=== PATIENT | male | born 1960 | race Caucasian/White ===

== ENCOUNTER 2025-03-31 06:58 | Outpatient (CLI) | payer MEDICARE, SELFPAY ==
--- NOTE | ~2025-03-31 | US_ITS ---
EXAMINATION: US aorta [facility] DATE: 03/31/2025 8:34 CDT INDICATION: Screening for aortic aneurysm. Hypertension. High cholesterol. Atrial fibrillation. TECHNIQUE: Grayscale, color Doppler, and pulsed Doppler images of the aorta and common iliac arteries were obtained. COMPARISON: No prior studies for comparison. FINDINGS: The proximal aorta measures 2.6 cm greatest sagittal dimension. The mid aorta measures 2.4 cm greates t sagittal dimension. The distal aorta measures 1.9 cm greatest sagittal dimension. The right common internal iliac artery measures 1.7 cm. The left common iliac artery measures 1.6 cm. IMPRESSION: 1. Normal caliber aorta without aneurysm. Reviewed, dictated and finalized at location A.
--- NOTE | ~2025-03-31 | US_ITS ---
EXAMINATION: US carotid duplex BI DATE: 03/31/2025 08:06 INDICATION: Carotid stenosis TECHNIQUE: Grayscale, color Doppler, and pulsed Doppler images of the cervical carotid arteries were obtained. The degree of vessel stenosis is placed in one of the following categories: normal, <50%, 5 0-69%, >=70% but less than near-occlusion, near-occlusion, or total occlusion. Note that percent sten osis relative to normal distal artery lumen diameter is indirectly measured from velocity measurement s as described by Paramjit, et al. Radiology 2003; 229:340-346. Notes: Normal: Peak systolic velocity <125 centimeters/sec and no plaque <50%. Peak systolic velocity <125 ( EDV <40; ICA/CCA PSV ratio <2.0; used these factors only a tandem lesions or low cardiac output or co ntralateral disease) 50-69 %: PSV 125-230 (EDV 40-100; ratio 2-4) >= 70% but less than near occlusion: PSV greater than 230 (EDV > 100; ratio> 4.0) Near Occlusion: PSV that is variable; markedly narrowed lumen Occlusion: Absent flow on color/spectral Doppler and no lumen on bliss scale. COMPARISON: None. FINDINGS: RIGHT: The right common carotid artery (CCA) peak systolic velocity (PSV) is 103 cm/s. The right internal ca rotid artery (ICA) PSV is 59 cm/s. The right ICA end-diastolic velocity (EDV) is 21 cm/s. The right I CA/CCA PSV ratio is 0.6. The external carotid artery (ECA) PSV is 81 cm/s. There is antegrade flow in the right vertebral artery. LEFT: The left CCA PSV is 70 cm/s. The left ICA PSV is 54 cm/s. The left ICA EDV is 26 cm/s. The left ICA/C CA PSV ratio is 0.8. The ECA PSV is 73 cm/s. There is antegrade flow in the left vertebral artery. IMPRESSION: 1. Less than 50% stenosis in the right internal carotid artery by sonographic criteria. 2. Less than 50% stenosis in the left internal carotid artery by sonographic criteria. Reviewed, dictated and finalized at location A. IMPRESSION: 1. Less than 50% stenosis in the right internal carotid artery by sonographic israel elliott. 2. Less than 50% stenosis in the left internal carotid artery by sonographic henrry romero.
--- OUTSIDE RECORDS SUMMARY | 2025-03-31 07:02 | XMS_ITS ---
Author Organization [facility] Address [facility] [address] [place], [place] [id number] Care Team Providers Care Box Shook Patcher Name Role Phone Carlo Owusu Primary Care Provider Unavailab Zafar Matthews Unavailable [phone] Migration, Provider Unavailable Unavailable REASON FOR VISIT Multum To Medispan Conversion Encounter Medications Medication SIG (Take, Route, Frequency, Duration) Notes Start Date End Date Status Lipitor 10 MG 1 tab(s) orally once a day Active Losartan Potassium 25 MG 1 tab(s) orally once a day Active Doxycycline Hyclate 100 MG 1 cap(s) oral ly 2 times a day for 10 days 10/01/2023 Active Prevacid 30 MG 1 cap(s) orally once a day Active amLODIPine Besylate 2.5 MG 1 tab(s) oral ly once a day Active Encounters Encounter Location Date Provider Diagnosis [facility] Plastic Surgery [address] [place], [place] [id number] 10/09/2024 Provider Migration Plan Of Treatment No Information Progress Notes * Live OWUSUDOB:1960 (65 yo M)Acc No.[id number]:10/09/2024 Patient: Live DILLARD Provider: Ignacia ward Migration :1960 A ge:64 Y S ex:Male Date:10/09/2024 [facility] [facility] [place] Pcp:Carlo Owusu Subjective: * Chief Complaints: * 1 . Multum To Medispan Conversion Encounter. * Medical History: * Medications: T aking Losartan Potassium 25 MG Tablet 1 tab(s) orally once a day , Taking Lipitor 10 MG Tablet 1 tab(s) orally once a day , Taking amLODIPine Besylate 2.5 MG Tablet 1 tab(s) orally once a day , Taking Prevacid 30 MG Capsule Delayed Release 1 cap(s) orally once a day , Taking Doxycycline Hyclate 100 MG Capsule 1 cap(s) orally 2 times a day Objective: * Vitals: * Physical Examination: Assessment: Plan: * Treatment: * * Electronic signature of Zamzam wolf Migration on 03/31/2025 at 07:02 AM CDT Sign off status: Pending * Provider: Ignacia ward Migration Date: 12/10/2023 Generated for Tristan aguilar/Cruz/Nicole on: 03/31/2025 07:02 AM CDT
--- OUTSIDE RECORDS SUMMARY | 2025-03-31 07:02 | XMS_ITS | Referral Summary ---
Author Organization [facility] Address [address] [place] [address] Care Team Providers Care Watch Mechanic Name Role Phone Carlo Owusu DO Primary Care Provider [phone] Allergies No known active allergies Medications lansoprazole (PREVACID) 30 mg capsule Take 1 capsule (30 mg total) by mouth daily Active atorvastatin (LIPITOR) 20 mg tablet Take 1 tablet (20 mg total) by mouth daily Active ascorbic acid (VITAMIN C) 100 mg tablet Take 1 tablet (100 mg total) by mouth daily Active cholecalciferol (VITAMIN D-3) 25 mcg (1,000 unit) tablet Take 1 tablet (1,000 Units total) by mouth daily Active losartan (COZAAR) 100 mg tablet Take 1 tablet (100 mg total) by mouth daily 01/26/2024 Active apixaban (ELIQUIS) 5 mg tablet Take 1 tablet (5 mg total) by mouth 2 (two) times a day 90 tablet 3 02/13/2024 Active dilTIAZem XR (Cartia XT) 180 mg 24 hr capsule Take 1 capsule (180 mg total) by mouth daily 90 capsule 3 02/13/2024 Active Active Problems Problem Noted Date Diagnosed Date Paroxysmal A-fib 10/03/2021 Anticoagulation management encounter 08/11/2021 Assessment & Plan (08/11/2021 2:11 PM CDT): The patient has a chads Vasc score of 0. At this level of risk, anticoagulation is not compulsory. He may continue on it at this is his preference. He understands that following ablation or if cardioversion is entertained, anticoagulation is necessary (at least transiently) regardless of risk score. I have not scheduled a specific follow up visit, but have asked the patient to contact me if new problems or questions arise. He will continue to follow closely with Dr. Vizcarra. Persistent atrial fibrillation 12/22/2017 Assessment & Plan (08/11/2021 2:09 PM CDT): Paroxysmal atrial fibrillation, symptomatic. Presently, the patient is maintaining sinus rhythm with dronedarone. However, he is experiencing mild side effects and is contemplating whether not he wants to continue on this medication in the long- term. We discussed catheter ablation as an option. We discussed the rationale for atrial fibrillation ablation, including the steps involved in ablation. I detailed the risks of the procedure, including vascular injury/hematoma, myocardial injury/perforation, stroke, myocardial infarction, pulmonary vein stenosis, thermal esophageal injury, phrenic nerve injury, and . I estimated a 70-80% chance of freedom from long-term atrial arrhythmia, and the patient understands that occasionally a second procedure is necessary. The patient will consider this option, and I asked him to contact me if he had additional questions. From: October, Anastacio LS, Shu JS, Albino H, Mayito WILFRID, Alicia JE, Barbara OCTAVIO, Rashmi PT, Reyes RAE, ME, Lalo KT, Ninfa RL, Pantera WG, Cam PJ, Courtney CM, Margarita CW. 2014 AHA/ACC/HRS guideline for the management of patients with atrial fibrillation: a report of the [place] [employer]/[place] [employer] Association Task Force on Practice Guidelines and the Heart Rhythm Society. J Am Rae Cardiol 2014. 6.3. AF Catheter Ablation to Maintain Sinus Rhythm: Recommendations Class I AF catheter ablation is useful for symptomatic paroxysmal AF ... intolerant to at least 1 class I or III antiarrhythmic medication when a rhythm control strategy is desired (356, [phone]). (Level of Evidence: A) Assessment & Plan (07/25/2021 10:53 AM CDT): We talked about again today the options for his atrial fibrillation. He does not want to take Multaq all of his life but he also does not want to consider ablation. He wants to try stopping the Multaq but I have told him he is very likely to have recurrent atrial fibrillation again. He also continues to drink intermittently. He is going to see Dr. Tony Kitchen from . I told him they could talk more about his options at that visit. I will plan on seeing him again in 3 months. Assessment & Plan (05/22/2021 11:02 AM CDT): The patient presented to the emergency room in [place] on May 17 with palpitations consistent with atrial fibrillation documented per EKG. He had conversion to sinus rhythm after receiving IV diltiazem followed by IV amiodarone and briefly amiodarone drip. At this time he will continue his p.o. diltiazem, amiodarone 200 mg daily, and remain on Eliquis for thromboembolic prophylaxis. I discussed with him the option of ongoing medical therapy versus evaluation by electrophysiology for possible ablation procedure. He would like to see the remodeler so I did provide names of the doctors at [facility] and he will set up an appointment. I encouraged him to follow through on getting his echocardiogram which he canceled yesterday. At this time I will not reorder the 30 day event monitor because we have documentation of his atrial fibrillation from his ER visit. He will follow up with Dr. Vizcarra after evaluation with electrophysiology. Assessment & Plan (05/02/2021 1:49 PM CDT): His chads Vasc is 2 for a both hypertension history of vascular disease. He has had previous atrial fibrillation and so I suspect this is also atrial fibrillation paroxysmal also. Given that, I went ahead and started him on Xarelto 20 mg daily. He continues on diltiazem. I will put an event monitor on him because I want to get a look at what his rhythm is doing. I think it is quite likely he needs another medication besides diltiazem. I asked him to get an echocardiogram again to look at his LV function and mitral insufficiency that was noted on his echo in 2010. I also asked him to get a TSH. After I get all of those things back I will see him back in the office in 6-8 weeks. Results of that testing will follow earlier as soon as I get them back. Assessment & Plan (12/22/2017 2:34 PM BLOOD BANK ORDER CONTROL CLERK): The patient has not had any recurrence of atrial fibrillation however he is still drinking alcohol. I told him he needs to control that alcohol intake because it would increase his risk of AFib recurrence. He states that he really has not had a recurrence since 2007. Non-rheumatic mitral regurgitation 12/22/2017 Assessment & Plan (07/25/2021 10:53 AM CDT): We will follow this by serial ECHO but he has had an echo recently. Assessment & Plan (05/02/2021 1:49 PM CDT): As noted above, I would like to repeat his echocardiogram also to look at his MR. Assessment & Plan (12/22/2017 2:36 PM BLOOD BANK ORDER CONTROL CLERK): The patient has not had a echo done about 7 years. He last had [id number] mitral regurgitation. We will probably repeat the echo with the next visit. Chest pain on breathing 12/22/2017 Assessment & Plan (12/22/2017 2:34 PM BLOOD BANK ORDER CONTROL CLERK): Patient is somewhat worried about his chest discomfort. He has some cardiac risk factors based on this we will get an exercise nuclear stress test on to allay some of his fears. PVD (peripheral vascular disease) 12/22/2017 Assessment & Plan (12/22/2017 2:37 PM BLOOD BANK ORDER CONTROL CLERK): The patient had a peripheral vascular ultrasound showing only atherosclerotic changes with no significant blockage. We discussed the need for him to change cardiac risk factors. We will increase his Lipitor to 20 mg and have a repeat cholesterol panel done to get his cholesterol lower. His LDL was 95 however we will try to get it lower. Pure hypercholesterolemia 12/22/2017 Assessment & Plan (07/25/2021 10:53 AM CDT): He also has had a recent lipid panel so I did not repeat that. Assessment & Plan (12/22/2017 2:38 PM BLOOD BANK ORDER CONTROL CLERK): Lipid abnormalities are improving with treatment. Pharmacotherapy as ordered. Lipids will be reassessed in 1 year. The patient is worried about his risk factors. Based on this we will increase Lipitor and see if we get his LDL down below 70. Social History Tobacco Use Types Packs/Day Years Used Date Smoking Tobacco: Never Smokeless Tobacco: Never Tobacco Cessation:Counseling Given: Not Answered Alcohol Use Standard Drinks/Week Comments Yes 0 (1 standard drink = 0.6 oz pur e alcohol) AUDIT-C Answer Date Recorded Q1: How often do you have a drink containing alc ohol? Monthly or less 10/03/2021 Q2: How many drinks containi ng alcohol do you have on a typical day when you are drinking? 1 or 2 10/03/2021 Q3: How often do you have si x or more drinks on one occasion? Never 10/03/2021 Sex and Gender Information Value Date Recorded Sex Assigned at Not on file Legal Sex Male 11:12 PM BLOOD BANK ORDER CONTROL CLERK Gender Identity Male 08/08/2021 4:56 PM CDT Sexual Orientation Not on file Last Filed Vital Signs Vital Sign Reading Time Taken Comments Blood Pressure 140/90 02/13/2024 10:38 AM CDT Pulse 71 02/13/2024 10:38 AM CDT Temperature 36.8 C (98.3 F) 10/04/2021 9:00 AM BLOOD BANK ORDER CONTROL CLERK Respiratory Rate 20 10/04/2021 9:00 AM BLOOD BANK ORDER CONTROL CLERK Oxygen Saturation 96% 02/13/2024 10:38 AM CDT Inhaled Oxygen Concentration - - Weight 123.6 kg (272 lb 8 oz) 02/13/2024 10:38 A M CDT Height 185.4 cm (6' 1) 02/13/2024 10:38 AM CDT Body Mass Index 35.95 02/13/2024 10:38 AM CDT Plan of Treatment Not on file Medical Devices Implanted Type Area National Sales Executive Device Identifier Shelf Expiration Date Model / Serial / Lot [employer] [id number] Vascade 6/7fr Bioabsorbable Vascular System Compression Collagen - [id number] - [id number] Implanted:Qty: 1 on 10/03/2021 by Eleuterio Kitchen MD at [facility] Collagen [employer] 06/07/2023 [id number] / [id number] / [id number] [employer] [id number] System 6-12fr Mvp Venous Closure Vascade - [id number] - [id number] Implanted:Qty: 1 on 10/03/2021 by Eleuterio Kitchen MD at [facility] Collagen [employer] 08/06/2023 [id number] [id number] / [id number] / [id number] [employer] [id number] System 6-12fr Mvp Venous Closure Vascade - [id number] - [id number] Implanted:Qty: 1 on 10/03/2021 by Eleuterio Kitchen MD at [facility] Collagen [employer] 08/06/2023 [id number]-[id number] 0U / [id number] / [id number] [employer] [id number] System 6-12fr Mvp Venous Closure Vascade - [id number] - [id number] Implanted:Qty: 1 on 10/03/2021 by Eleuterio Kitchen MD at [facility] Collagen [employer] 08/06/2023 800-612C-1 0U / [id number] / [id number] M[employer] Implanted:Qty: 1 on 12/29/2017 by Jatinder Carey DO at [facility] 09/25/2019 [id number] / / [id number] Insurance [facility] [employer] CHOICE MEDICARE PPO Advance Directives For more information, please contact: [phone] * Full Code (Latest Code Status on File) Date Activated Date Inactivated Comments 12/29/2017 9:19 AM 12/29/2017 3:51 PM Care Teams Watch Mechanic Relationship Specialty Start Date End Date Carlo Owusu DO [address] [place] [address] PCP - General 11/05/10
--- OUTSIDE RECORDS SUMMARY | 2025-03-31 07:02 | XMS_ITS | Clinical Summary ---
Author Organization [facility] Address [address] [place] [address] Phone Care Team Providers Care Intelligent Systems Engineer Name Role Phone Carlo Owusu DO Primary Care Provider Allergies No known active allergies Medications amiodarone (CORDARONE) 200 MG Tablet Take 1 Tablet by mouth daily. 30 Tablet 05/17/2021 Active Social History Tobacco Use Types Packs/Day Years Used Date Smoking Tobacco: Never Smokeless Tobacco: Never Alcohol Use Standard Drinks/Week Comments Yes 0 (1 standard drink = 0.6 oz pur e alcohol) Sex and Gender Information Value Date Recorded Sex Assigned at Not on file Legal Sex Male 5:08 AM CDT Gender Identity Not on file Sexual Orientation Not on file Last Filed Vital Signs Vital Sign Reading Time Taken Comments Blood Pressure 122/71 05/17/2021 9:45 AM CDT Pulse 80 05/17/2021 9:45 AM CDT Temperature 36.4 C (97.5 F) 05/17/2021 5:14 AM CDT Respiratory Rate 20 05/17/2021 9:30 AM CDT Oxygen Saturation 93% 05/17/2021 9:45 AM CDT Inhaled Oxygen Concentration - - Weight 131.5 kg (290 lb) 05/17/2021 5:14 AM CDT Height 188 cm (6' 2) 05/17/2021 5:14 AM CDT Body Mass Index 37.23 05/17/2021 5:14 AM CDT Plan of Treatment Health Maintenance Due Date Last Done Comments Hepatitis C Virus (HCV) Screening 1960 Colonoscopy 01/28/2005 Colorectal Cancer Screening 01/28/2005 Cologuard 01/28/2010 Immunochemical Fecal Occult Blood 01/28/2010 Pneumococcal Immunization (5 0+ years) (1 of 1 - PCV) 01/28/2010 SARS-COV-2 Immunization (2 - season) 2024 08/23/2021 Influenza Immunization (Seas on Ended) 2025 07/04/2020, 07/09/2017 Respiratory Syncytial Virus (RSV) Immunization (Adult) (1 - 1-dose 75+ series) 01/28/2035 DTaP/Tdap/Td Immunization Discontinued 02/01/2019 TdaP Immunization Completed 02/01/2019 Zoster Immunization Completed 02/26/2021, 09/24/2020 Hepatitis B Immunization Aged Out No longer eligible based on patient's age to complete this topic Human Papillomavirus (HPV) Immunization Aged Out No longer eligible based on patient's age to complete this topic Meningococcal Immunization (ACWY) Aged Out No longer eligible based on patient's age to complete this topic Rotavirus Immunization Aged Out No lo nger eligible based on patient's age to complete this topic Insurance Care Teams Intelligent Systems Engineer Relationship Specialty Start Date End Date Carlo Owusu DO [address] [place] [address] PCP - General Family Medicine 05/17/21
--- OUTSIDE RECORDS SUMMARY | 2025-03-31 07:02 | XMS_ITS ---
Author Organization [facility] Address [address] [id number] Care Team Providers Care Physical Damage Appraiser Name Role Phone Carlo Owusu Primary Care Provider Unavailab Zafar Matthews Unavailable [phone] REASON FOR VISIT right side tumor soft tissue neck //aw Encounters Encounter Location Date Provider Diagnosis [facility] [address] [address] 10/09/2023 Zafar Vera Epidermal cyst L72.0 Assessments Encounter Date Diagnosis (ICD Code) Assessment Notes Treatment Notes Treatment Clinical Notes Section Notes 10/09/2023 Epidermal cyst (ICD-10 - L72.0) Plan Of Treatment No Information Progress Notes * Live OWUSUDOB:1960 (65 yo M)Acc No.[id number]:10/09/2023 Progress Note Patient: Live DILLARD Provider: Nanda Vera DO :1960 A ge:63 Y S ex:Male Date:10/09/2023 Address:[address] [place] [place], [place] Pcp:Carlo Owusu Subjective: * Chief Complaints: * 1 . Right side tumor soft tissue neck //aw. * Medical History: Objective: * Vitals: * Physical Examination: Assessment: * Assessment: 1. E pidermal cyst - L72.0 (Primary) Plan: * Treatment: * Procedure Codes: 2 1552 EXC NECK LES 3cm & over * * Electronic signature of Juan Vera DO on 03/31/2025 at 07:02 AM CDT Sign off status: Pending * Provider: Nanda Vera DO Date: 1 12/10/2022 Generated for Tristan aguilar/Cruz/Nicole on: 03/31/2025 07:02 AM CDT
--- OUTSIDE RECORDS SUMMARY | 2025-03-31 07:02 | XMS_ITS | Clinical Summary ---
Author Organization [facility] Address [address] [place] [address] Care Team Providers Care Metabolic Specialist Name Role Phone Carlo Owusu DO Primary Care Provider [phone] Allergies No known active allergies Medications lansoprazole [...] with atrial fibrillation: a report of the [place] College of Cardiology/[place] Heart Association Task Force on Practice Guidelines [...] intermittently. He is going to see Dr. oTny Kitchen from . I told him they could talk more about his options at that visit. I will plan on seeing him again in 3 months. Assessment & Plan (05/22/2021 11:02 AM CDT): The patient presented to the emergency room in [place] on May 17 with palpitations consistent with [...] procedure. He would like to see the commodity industry analyst so I did provide names of the doctors at [facility] and he will set up an appointment. [...] back. Assessment & Plan (12/22/2017 2:34 PM DIGITAL MEDIA STRATEGIST): The patient has not had any recurrence [...] MR. Assessment & Plan (12/22/2017 2:36 PM DIGITAL MEDIA STRATEGIST): The patient has not had a echo done about 7 years. He last had sqzl-eo-zkhpebbx mitral regurgitation. We will probably repeat the echo with the next visit. Chest pain on breathing 12/22/2017 Assessment & Plan (12/22/2017 2:34 PM DIGITAL MEDIA STRATEGIST): Patient is somewhat worried about his chest discomfort. He has some cardiac risk factors based on this we will get an exercise nuclear stress test on to allay some of his fears. PVD (peripheral vascular disease) 12/22/2017 Assessment & Plan (12/22/2017 2:37 PM DIGITAL MEDIA STRATEGIST): The patient had a peripheral vascular ultrasound [...] that. Assessment & Plan (12/22/2017 2:38 PM DIGITAL MEDIA STRATEGIST): Lipid abnormalities are improving with treatment. Pharmacotherapy as ordered. Lipids will be reassessed in 1 year. The patient is worried about his risk factors. Based on this we will increase Lipitor and see if we get his LDL down below 70. Surgical History Surgery Date Site/Laterality Comments NO PAST SURGERIES Medical History Medical History Date Comments Sleep apnea sleep apnea Hyperlipidemia A-fib (HCC) Colitis, acute Family History Medical History Relation Name Comments Heart attack Maternal Grandfather Myocard ial Infarction; Cause of : Myocardial Infarction Arrhythmia Mother Arrhythmias; Heart attack Mother's Brother 2 Myocardia l Infarction; Cause of : Myocardial Infarction Relation Name Status Comments Maternal Grandfather Mother Alive Mother's Brother 1 Mother's Brother 2 Social History Tobacco Use Types Packs/Day Years [...] on file Legal Sex Male 11:12 PM DIGITAL MEDIA STRATEGIST Gender Identity Male 08/08/2021 4:56 PM CDT Sexual Orientation Not on file Obstetrics History Last Filed Vital Signs Vital Sign Reading Time Taken Comments Blood Pressure 140/90 02/13/2024 10:38 AM CDT Pulse 71 02/13/2024 10:38 AM CDT Temperature 36.8 C (98.3 F) 10/04/2021 9:00 AM DIGITAL MEDIA STRATEGIST Respiratory Rate 20 10/04/2021 9:00 AM DIGITAL MEDIA STRATEGIST Oxygen Saturation 96% 02/13/2024 10:38 AM CDT Inhaled Oxygen Concentration - - Weight 123.6 kg (272 lb 8 oz) 02/13/2024 10:38 A M CDT Height 185.4 cm (6' 1) 02/13/2024 10:38 AM CDT Body Mass Index 35.95 02/13/2024 10:38 AM CDT Plan of Treatment Health Maintenance Due Date Last Done Comments Colon Cancer Screening-Colonoscopy 1960 Depression Screening 1960 Hepatitis C Screening 1960 Prostate Cancer Screening-PSA 1960 Hepatitis B Screening 01/28/1978 Pneumococcal vaccine 65+ (1 of 1 - PCV) 01/28/2010 Fall Risk Assessment 10/04/2022 10/04/2021 Abdominal Aortic Aneurysm (A AA) Screen 01/28/2025 Well Visit 65+ 01/28/2025 Influenza Vaccine (Season Ended) 2025 07/04/2020, 08/02/2019, 07/09/2017, Additional history exists DTaP/Tdap/Td Vaccine (2 - Td or Tdap) 02/01/2029 02/01/2019 Zoster Vaccine Completed 02/26/2021, 09/24/2020 Medical Devices Implanted Type Area Veterinary Practice Manager Device Identifier Shelf Expiration Date Model / Serial / Lot [employer] [id number] Vascade 6/7fr Bioabsorbable Vascular System Compression Collagen - [id number] - [id number] Implanted:Qty: 1 on 10/03/2021 by Eleuterio Kitchen MD at [facility] Collagen [employer] 06/07/2023 [id number] / [id number] / [id number] [employer] [id number] System 6-12fr Mvp Venous Closure Vascade - [id number] - [id number] Implanted:Qty: 1 on 10/03/2021 by Eleuterio Kitchen MD at [facility] Collagen [employer] 08/06/2023 800-612C-1 0U / [id number] / [id number] [employer] [id number] System 6-12fr Mvp Venous Closure Vascade - [id number] - [id number] Implanted:Qty: 1 on 10/03/2021 by Eleuterio Kitchen MD at [facility] Collagen [employer] 08/06/2023 800-612C-1 0U / [id number] / [id number] [employer] [id number] System 6-12fr Mvp Venous Closure Vascade - [id number] - [id number] Implanted:Qty: 1 on 10/03/2021 by Eleuterio Kitchen MD at [facility] Collagen [employer] 08/06/2023 800-612C-1 0U / [id number] / [id number] Mynx Implanted:Qty: 1 on 12/29/2017 by Jatinder Carey DO at [facility] 09/25/2019 [id number] / / [id number] [place] CHO[place]ICARE PPO Advance Directives For more information, please contact: [phone] * Full Code (Latest Code Status on File) Date Activated Date Inactivated Comments 12/29/2017 9:19 AM 12/29/2017 3:51 PM Care Teams Metabolic Specialist Relationship Specialty Start Date End Date Carlo Owusu DO [address] [place] [address] PCP - General 11/05/10
--- OUTSIDE RECORDS SUMMARY | 2025-03-31 07:02 | XMS_ITS | Patient Health Record ---
Author Organization [facility] Address [address] [facility] [address] [place], [place] [id number] Care Team Providers Care Ground Crew Lines Person Name Role Phone Carlo Owusu Primary Care Provider Unavailab Zafar Matthews Unavailable [phone] Migration, Provider Unavailable Unavailable Allergies No Known Allergies Reason For Referral No Information Medications Medication SIG (Take, Route, Frequency, Duration) [...] Location Date Provider Diagnosis [facility] [address] [facility] [address] [place], [place] [id number] 10/09/2024 Provider Migration Plan Of Treatment No Information Insurance Providers Payer Name Payer Address Payer Phone Subscriber Number Group Number Insured Name Patient Relationship to Insured Coverage Start Date Coverage End Date [employer] [facility] [address] [place] [address] [id number] Live Owusu Self - patient is the insured Medical (General) History Medical History History ICD Code high blood pressure, A-fib Surgical History Surgery Date(Month/Year) cardiac abilation right neck cyst---RLB 10/09/23
--- OUTSIDE RECORDS SUMMARY | 2025-03-31 07:02 | XMS_ITS | Continuity of Care Document ---
Author Organization [facility] Address [address] [facility] [place] [address] Phone Care Team Providers Care Document Photographer Name Role Phone Doc Valiente MD Unavailable Unavailable Allergies, Adverse Reactions, Alerts Substance Reaction Status Criticality No Known Allergies Active No Inform ation Medications Medication Instructions Dosage Effective Dates (start - stop) Status Comments Zepbound 12.5 mg/0.5 mL subcutaneous pen injector inject (12.5MG) by subcutaneous route every week 12.5 MG - Active Zepbound 10 mg/0.5 mL subcutaneous pen injector inject (10MG) by subcutaneous route every week 10 MG - Active omeprazole 20 mg capsule,delayed release take 1 capsule by oral route every day before a meal 20 MG - Active Zepbound 7.5 mg/0.5 mL subcutaneous pen injector inject (7.5MG) by subcutaneous route every week 7.5 MG - Active losartan 100 mg tablet take 1 tablet by oral route every day 100 MG - Active Lipitor 20 mg tablet take 1 Tablet by or al route every day 20 MG - Active Eliquis 5 mg tablet take 1 tablet by ora l route 2 times every day 5 MG - Active diltiazem ER 180 mg tablet,extended release 24 hr take 1 tablet by oral route every day 180 MG - Active Procedures Procedure Date OFFICE/OUTPATIENT VISIT, EST OFFICE/OUTPATIENT VISIT, EST OFFICE/OUTPATIENT VISIT, EST PREV VISIT, NEW, AGE 40-64 OFFICE/OUTPATIENT VISIT, NEW Advance Directives Directive Yes / No Effective Date File Name No Information Encounters Encounter Description Practice Location Reason(s) For Visit Diagnoses Date Provider Providers Copied on Encounter OFFICE/OUTPA TIENT VISIT, [facility] ([place], [address], [place], [place], [id number], [place] tel:[phone] [facility] weight loss1 (chief complaint) cataract1 (chief complaint) afib (chief complaint) Abnormal weight lossOther age-related cataractAtrial fibrillation Jan-2 5 Rocco Roach. [address], [place], [place], [address] , [place]. tel:[phone] OFFICE/OUTPA TIENT VISIT, [facility] ([place], [address], [place], [place], [id number], [place] tel:[phone] [facility] HTN (chief complaint) HLP (chief complaint) sleep apnea1 (chief complaint) obesity1 (chief complaint) Essential (primary) hypertensionMixed hyperlipidemiaObstr uctive sleep apnea hypopneaAtrial fibrillation Jan-0 5 Rocco Roach. [address], [place], [place], [address] , [place]. tel:[phone] OFFICE/OUTPA TIENT VISIT, [facility] ([place], [address], [place], [place], [address], [place] tel:[phone] [facility] colon polyp1 (chief complaint) sleep apnea1 (chief complaint) HTN (chief complaint) HLP (chief complaint) A1c (chief complaint) Essential (primary) hypertensionMixed hyperlipidemiaPolyp of colonObstructive sleep apnea hypopneaHyperglycem iaAbnormal weight gain 5 Rocco Roach. [address], [place], [place], [address] , [place]. tel:[phone] PREV VISIT, NEW, AGE 40-64 [facility], [address], [place], [place], [address], [place] tel:[phone] [facility] physical (chief complaint) Encounter for general adult medical exam w abnormal findingsEssential (primary) hypertensionAtrial fibrillationMixed hyperlipidemiaUmbil ical herniaGERD w/o esophagitisObstruct jw sleep apnea hypopnea 4 Rocco Roach. [address] [facility] [address], [place], [place], [address] , . tel:[phone] Family History Family Member Type Diagnosis Age At Onset Brother Problem Alive and well Mother Problem of afb and CVA 75 Father Problem pharyngeal Ca Father Problem abdominal AAA Payers Payer name Insurance type Covered constitution party ID Authoriza tijose(s) [employer] CI [id number] Social History Type Description Quantity Date Captured Comments Alcohol Use Details Caffeine Use Details Unknown Tobacco Use Status Current non-smoker Smoking Status Never smoker Sex Male Vital Signs Date / Time: Height Weight BMI Pulse Rate Blood Pressure Temperature Respiratory Rate Body Surface Area Head Circumference BMI percentile Pulse Ox Inhaled Ox 4:00 PM 73.00 in 271.40 lbs 35.8 1 kg/m eter (2) 84 /min 110/70 mm[Hg] 98.2 F 16 /min Chief Complaint And Reason For Visit From encounter dated '02/22/2025 15:56'. weight loss1 (chief complaint). Description: Pt has been losing weight gradually with zepbound Pt tolerating it ok. cataract1 (chief complaint). Description: Pt has bilateral cataract and he needs clearance to have surgery soon. Pt will undergo surgery under MAC afib (chief complaint). Description: Pt has paroxymal afib. Pt sees cardiology .Pt is on diltiazem,losartan and eliquis Pt denies any chest pain or palpitation. Plan Of Treatment Date Type Action Status Referral Referred To: Carlos Manuel Teague [address] [place] [address], [address] [phone] Ordered: Referrals: Carlos Manuel Teauge. Evaluate and treat ordered History Of Present Illness Encounter Date Complaint History Of Prese nt Illness afib Pt has paroxymal afib. Pt sees cardiology .Pt is on diltiazem, losartan and eliquis Pt denies any chest pain or palpitation. cataract1 Pt has bilateral cataract and he needs clearance to have surgery soon. Pt will undergo surgery under MAC weight loss1 Pt has been losi ng weight gradually with zepbound Pt tolerating it ok. obesity1 Pt is on last we ek of zepbound 0.5 mg weekly Pt tolerating it ok Pt lost some weight sleep apnea1 Pt has moderate and severe sleep apnea Pt uses cpap nightly Pt feels more energy and less snoring with cpap HLP Pt has HLP Pt is on lipitor Pt denies any myalgia HTN Pt has HTn and p aroxymal afib Pt sees cardiology Pt denies any chest pain or palpitation or sob Pt is on diltiazem and losartan and his bp is ok. Pt also takes eliquis colon polyp1 Pt has history o f tubular adenoma. Pt had colonoscopy done 2020 which showed benign colonoscopy. Pt was told to repeat 2025. 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 Pt uses cpap 13 cm water pressure and doing ok. HTN Pt has HTN. Pt t akes losartan and diltiazem and his bp is ok Pt has paroxymal afib Pt is on eliquis Pt sees cardiology .Pt denies any chest pain HLP Pt has HLP Pt ta kes lipitor and his lipid profile is ok Pt denies any myalgia A1c Pt has borderlin e high A1c. His glucose is ok Pt denies any polyuria polydipsia physical Pt needs annual physical pt has history of tubular adenoma in the past and last Colonoscopy was 2022 which was clear and he supposes to have another colonoscopy 2027. Pt has chronic GERD He takes prilosec daily. Pt states that he has GERD if he does not take prilosec daily Pt has sleep apnea and he uses cpap at night. Pt has HTN and also paroxymal afib Pt is on losartan and eliquis and diltiazem and lipitor .Pt sees cardiology .Pt denies any chest pain or headache .Pt has umbilical hernia without any pain. Instructions Date Instruction Additional Infor mation No Information Assessments Type Assessment Date assessment Abnormal weight loss assessment Other age-related cataract assessment Atrial fibrillation Mental Status Date Cognitive Assessment Orientation - Eads ed to time, place, person, situation.
== END 2025-03-31 06:59 | disposition home or self-care (01) ==
LOC: ANHIMG 07:00
PROVIDERS: Visit Provider Internal Medicine Cardiovascular Disease
DX: I65.23 Occlusion and stenosis of bilateral carotid arteries (principal); Z13.6 Encounter for screening for cardiovascular disorders
CPT/HCPCS: 76706; 93880

== ENCOUNTER 2025-08-30 09:35 | Outpatient (CLI) | payer MEDICARE, SELFPAY ==
--- OUTSIDE RECORDS SUMMARY | 2024-10-09 15:30 | XMS_ITS ---
Author Organization [facility] Address [address] [facility] [address] [place], [place] [id number] Care Team Providers Care Power House Control Room Operator Name Role Phone Carlo Owusu Primary Care Provider Unavailab Zafar Matthews Unavailable [phone] Migration, Provider Unavailable Unavailable REASON FOR VISIT Multum To Medispan Conversion Encounter Medications Medication SIG (Take, Route, Frequency, Duration) Notes Start Date End Date Status Lipitor 10 MG Tablet 1 tab(s) orally onc e a day Active Losartan Potassium 25 MG Tablet 1 tab(s) orally once a day Active Doxycycline Hyclate 100 MG Capsule 1 cap(s) orally 2 times a day; Duration: 10 days 10/01/2023 Active Prevacid 30 MG Capsule Delayed Release 1 cap(s) orally once a day Active amLODIPine Besylate 2.5 MG Tablet 1 tab(s) orally once a day Active Encounters Encounter Location Date Provider Diagnosis [facility] [place] [address] [facility] [address] [place], [place] [id number] 10/09/2024 Provider Migration Plan Of Treatment No Information Progress Notes * Live OWUSUDOB:1960 (65 yo M)Acc No.[id number]:10/09/2024 Patient: Live Clemens Provider: Ignacia ward Migration :1960 A ge:64 Y S ex:Male Date:10/09/2024 [facility] [facility] [id number] Pcp:Carlo Owusu Subjective: * Chief Complaints: * M ultum To Medispan Conversion Encounter * Medications: T akingLosartan Potassium 25 MG Tablet 1 tab(s) orally once a day Lipitor 10 MG Tablet 1 tab(s) orally once a day amLODIPine Besylate 2.5 MG Tablet 1 tab(s) orally once a day Prevacid 30 MG Capsule Delayed Release 1 cap(s) orally once a day Doxycycline Hyclate 100 MG Capsule 1 cap(s) orally 2 times a day Taking Losartan Potassium 25 MG Tablet 1 tab(s) orally once a day Taking Lipitor 10 MG Tablet 1 tab(s) orally once a day Taking amLODIPine Besylate 2.5 MG Tablet 1 tab(s) orally once a day Taking Prevacid 30 MG Capsule Delayed Release 1 cap(s) orally once a day Taking Doxycycline Hyclate 100 MG Capsule 1 cap(s) orally 2 times a day * Electronic signature of Prov ider Migration on 08/30/2025 at 10:42 AM DIRECT CARE STAFFER Sign off status: Pending * Provider: Ignacia ward Migration Date: 12/10/2023 Generated for Tristan aguilar/Cruz/Nicole on: 10/30/2024 10:42 AM DIRECT CARE STAFFER
[2025-08-30 10:41] LABS: Cholesterol 123 mg/dL (0-200); HDL Direct 42 mg/dL; Triglycerides 49 mg/dL (<150)
--- OUTSIDE RECORDS SUMMARY | 2025-08-30 10:42 | XMS_ITS | Clinical Summary ---
Author Organization [facility] Address [address] [place] [address] Care Team Providers Care Nutrition Therapist Name Role Phone Carlo Owusu DO Primary Care Provider [phone] Allergies No known active allergies Medications lansoprazole [...] with atrial fibrillation: a report of the [place] College of Cardiology/[place] Heart Association Task Force on Practice Guidelines [...] patient presented to the emergency room in [place] on May 17 with palpitations consistent with [...] procedure. He would like to see the reexaminer so I did provide names of the doctors at [facility] and he will set up an [...] back. Assessment & Plan (12/22/2017 2:34 PM VACATION PLANNER): The patient has not had any recurrence [...] MR. Assessment & Plan (12/22/2017 2:36 PM VACATION PLANNER): The patient has not had a echo done about 7 years. He last had jxwr-zd-[id number] mitral regurgitation. We will probably repeat the echo with the next visit. Chest pain on breathing 12/22/2017 Assessment & Plan (12/22/2017 2:34 PM VACATION PLANNER): Patient is somewhat worried about his chest discomfort. He has some cardiac risk factors based on this we will get an exercise nuclear stress test on to allay some of his fears. PVD (peripheral vascular disease) 12/22/2017 Assessment & Plan (12/22/2017 2:37 PM VACATION PLANNER): The patient had a peripheral vascular ultrasound [...] that. Assessment & Plan (12/22/2017 2:38 PM VACATION PLANNER): Lipid abnormalities are improving with treatment. Pharmacotherapy [...] on file Legal Sex Male 11:12 PM VACATION PLANNER Gender Identity Male 08/08/2021 4:56 PM CDT Sexual Orientation Not on file Last Filed Vital Signs Vital Sign Reading Time Taken Comments Blood Pressure 127/86 04/01/2025 8:55 AM CDT Pulse 71 04/01/2025 8:55 AM CDT Temperature 36.8 C (98.3 F) 10/04/2021 9:00 AM VACATION PLANNER Respiratory Rate 20 10/04/2021 9:00 AM VACATION PLANNER Oxygen Saturation 96% 02/13/2024 10:38 AM CDT [...] 01/28/2025 Well Visit 65+ 01/28/2025 Influenza Vaccine (#1) 2025 0, 08/02/2019, 07/09/2017, Additional history exists DTaP/Tdap/Td Vaccine (2 - Td or Tdap) 02/01/2029 02/01/2019 Zoster Vaccine Completed 02/26/2021, 09/24/2020 Medical Devices Implanted Type Area Drapery Hand Device Identifier Shelf Expiration Date Model / Serial / Lot [employer] [id number] Vascade 6/7fr Bioabsorbable Vascular System Compression Collagen - [id number] - [id number] Implanted:Qty: 1 on 10/03/2021 by Eleuterio Kitchen MD at [facility] Collagen [employer] 06/07/2023 700-580I-0 5U / [id number] / [id number] [employer] [id number] System 6-12fr Mvp Venous Closure Vascade - [id number] - [id number] Implanted:Qty: 1 on 10/03/2021 by Eleuterio Kitchen MD at [facility] Collagen [employer] 08/06/2023 800-612C-1 0U / [id number] / [id number] [employer] [id number] System 6-12fr Mvp Venous Closure Vascade - [id number] - [id number] Implanted:Qty: 1 on 10/03/2021 by Eleuterio Kitchen MD at [facility] Collagen [employer] 08/06/2023 800-612C-1 0U / [id number] / [id number] [employer] [id number] System 6-12fr Mvp Venous Closure Vascade - [id number] - [id number] Implanted:Qty: 1 on 10/03/2021 by Eleuterio Kitchen MD at [facility] Collagen [employer] 08/06/2023 800-612C-1 0U / [id number] / [id number] Mynx Implanted:Qty: 1 on 12/29/2017 by Jatinder Carey DO at [facility] 09/25/2019 [id number] / / [id number] Insurance [facility] CHOICE MEDICARE PPO HUMANA CHOICE MEDICARE PPO Advance Directives For more information, please contact: [phone] * Full Code (Latest Code Status on File) Date Activated Date Inactivated Comments 12/29/2017 9:19 AM 12/29/2017 3:51 PM Care Teams Nutrition Therapist Relationship Specialty Start Date End Date Carlo Owusu DO [address] [place] [address] PCP - General 11/05/10
--- OUTSIDE RECORDS SUMMARY | 2025-08-30 10:42 | XMS_ITS | Clinical Summary ---
Author Organization [facility] Address [address] [place] [address] Phone Care Team Providers Care Coding Educator Name Role Phone Carlo Owusu DO Primary [...] Comments Hepatitis C Virus (HCV) Screening 1960 Cologuard 01/28/2005 Colonoscopy 01/28/2005 Colorectal Cancer Screening 01/28/2005 Immunochemical Fecal Occult Blood 01/28/2005 Pneumococcal Immunization (5 0+ years) (1 of 1 - PCV) 01/28/2010 Influenza Immunization (#1) 2025 09/0 05/2020, 07/09/2017 SARS-COV-2 Immunization (2 - season) 2025 08/23/2021 Respiratory Syncytial Virus (RSV) Immunization (Adult) (1 [...] to complete this topic Insurance Care Teams Coding Educator Relationship Specialty Start Date End Date Carlo Owusu DO [address] [place] [address] PCP - General Family Medicine 05/17/21
--- OUTSIDE RECORDS SUMMARY | 2025-08-30 10:42 | XMS_ITS | Patient Health Record ---
Author Organization [facility] Address [facility] [address] [id number] Care Team Providers Care Seamless Tube Mill Operator Name Role Phone Carlo Owusu Primary Care Provider Unavailab Zafar Matthews Unavailable [phone] Migration, Provider Unavailable Unavailable Allergies No Known [...] Location Date Provider Diagnosis [facility] [place] [address] [address] [id number] 10/09/2024 Provider Migration Plan Of Treatment No Information Insurance Providers Payer Name Payer Address Payer Phone Subscriber Number Group Number Insured Name Patient Relationship to Insured Coverage Start Date Coverage End Date [facility] [address] [place] [address] [id number] Live Owusu Self - patient is the insured Medical (General) History Medical History History ICD Code high blood pressure, A-fib Surgical History Surgery Date(Month/Year) cardiac abilation right neck cyst---RLB 10/09/23
[2025-08-31 07:09] LABS: C-Reactive Protein, Cardiac 1.15 mg/L (0.00-3.00)
== END 2025-08-30 09:36 | disposition home or self-care (01) ==
PROVIDERS: PCP Emergency Medicine; Visit Provider Internal Medicine Cardiovascular Disease
DX: I25.10 Atherosclerotic heart disease of native coronary artery without angina pectoris (principal); E78.5 Hyperlipidemia, unspecified
CPT/HCPCS: 36415; 80061; 86141